=== PATIENT | male | born 1955 | race Caucasian/White ===

== ENCOUNTER 2022-02-27 21:04 | Inpatient (IN) | payer MEDICARE, MEDICAID ==
[~2022-02-27] VITALS: Ht 188 cm; Wt 116.7 kg
[2022-02-27 23:08] LABS: Basophils # (auto) 0.1 10 ^3/uL (0-0.2); Basophils % (auto) 0.5 % (0.0-2.0); Eosinophils # (auto) 0 10 ^3/uL (0-0.8); Eosinophils % (auto) 0.2 % (0.0-7.0); Hematocrit 50.5 % (41.0-53.0); Hemoglobin 16.1 g/dL (13.5-17.5); Lymphocytes # (auto) 1.1 10 ^3/uL (0.4-5.4); Lymphocytes % (auto) 8.9 % (10.0-50.0); Mean Corpuscular Hemoglobin 30.5 pg (28.0-32.0); Mean Corpuscular Hgb Conc. 31.9 g/dL (32.0-36.0); Mean Corpuscular Volume 95.8 fL (80.0-100.0); Monocytes # (auto) 0.8 10 ^3/uL (0-1.3); Monocytes % (auto) 6.9 % (0.0-12.0); Neutrophils # (auto) 10.2 10 ^3/uL (1.6-8.6); Neutrophils % (auto) 83.5 % (37.0-80.0); Red Blood Cells 5.28 10^6/uL (4.5-5.90); Red Cell Distribution Width 14.8 % (11.8-14.3); White Blood Cell 12.2 10^3/uL (4.4-10.8)
[2022-02-27 23:49] LABS: Alanine Aminotransferase 21 U/L (16-61); Alkaline Phosphatase 114 U/L (45-117); Anion Gap 10 (5-15); Aspartate Aminotransferase 29 U/L (15-37); BUN/Creatinine Ratio 7.9; Blood Urea Nitrogen 19 mg/dL (7-18); Carbon Dioxide 21 mmol/L (21-32); Chloride 108 mmol/L (98-107); GFR African American 35 mL/min; GFR Non-African American 29 mL/min; Glucose 131 mg/dL (74-106); Potassium 3.1 mmol/L (3.5-5.1); Sodium 139 mmol/L (136-145)
[2022-02-27 23:50] LABS: Albumin 3.1 g/dL (3.4-5.0); Bilirubin, Total 0.7 mg/dL (0.2-1.0); Blood Alcohol < 3.0 mg/dL (0-5); Calcium 9.1 mg/dL (8.5-10.1); Lipase 128 U/L (73-393); Total Protein 6.7 g/dL (6.4-8.2)
[2022-02-28] MEDS ORDERED: cefTRIAXone SOD 1,000 MG VL IV ONE (00:30)
[2022-02-28] MEDS ORDERED: ACETAMINOPHEN 325 MG TAB PO PRN (00:45)
[2022-02-28] MEDS ORDERED: DEXTROSE (50%) 50ML SYRG IV PRN (00:45)
[2022-02-28] MEDS ORDERED: ONDANSETRON HCL 4 MG/2 ML VIAL IV PRN (00:45)
[2022-02-28] MEDS ORDERED: DOCUSATE SOD 100 MG CAP PO PRN (00:45)
[2022-02-28] MEDS ORDERED: NITROGLYCERIN 0.4 MG SL TAB SL PRN (01:15)
[2022-02-28] MEDS ORDERED: MORPHINE SULFATE INJ 2 MG/ml SYRG IV PRN (01:15)
[2022-02-28 05:35] LABS: Amphetamine Screen, Urine NEGATIVE (NEGATIVE); Barbiturate Scree,Urine NEGATIVE (NEGATIVE); Benzodiazephine Screen, Urine NEGATIVE (NEGATIVE); Cannabinoid Screen, Urine NEGATIVE (NEGATIVE); Cocaine Screen, Urine NEGATIVE (NEGATIVE); Opiate Scree,Urine NEGATIVE (NEGATIVE); Phencyclidine Screen, Urine NEGATIVE (NEGATIVE)
[2022-02-28] MEDS: POTASSIUM CHL 20MEQ/100ML 100 ML IV SCH ×2 (05:58→09:49)
[2022-02-28] MEDS: HYDROcodone-ACET 5/325MG TAB PO PRN ×3 (06:29→22:58)
[2022-02-28 06:44] LABS: Basophils # (auto) 0 10 ^3/uL (0-0.2); Basophils % (auto) 0.5 % (0.0-2.0); Eosinophils # (auto) 0.1 10 ^3/uL (0-0.8); Eosinophils % (auto) 0.8 % (0.0-7.0); Hematocrit 49.6 % (41.0-53.0); Hemoglobin 16.4 g/dL (13.5-17.5); Lymphocytes # (auto) 1.6 10 ^3/uL (0.4-5.4); Mean Corpuscular Hemoglobin 31.4 pg (28.0-32.0); Mean Corpuscular Volume 94.9 fL (80.0-100.0); Monocytes # (auto) 0.7 10 ^3/uL (0-1.3); Monocytes % (auto) 8.3 % (0.0-12.0); Neutrophils # (auto) 6.5 10 ^3/uL (1.6-8.6); Neutrophils % (auto) 72.4 % (37.0-80.0); Nucleated Red Blood Cells % 0.1 %; Red Blood Cells 5.22 10^6/uL (4.5-5.90); Red Cell Distribution Width 14.5 % (11.8-14.3)
[2022-02-28 06:45] LABS: INR 1.02 (0.9-1.15)
[2022-02-28 06:49] LABS: Albumin 3.1 g/dL (3.4-5.0); Calcium 9.3 mg/dL (8.5-10.1); Potassium 3.8 mmol/L (3.5-5.1)
[2022-02-28 06:52] LABS: Urine Bacteria FEW /hpf (None Seen); Urine Blood 3+ /uL (Negative); Urine Hyaline Cast FEW /lpf (0 - 2); Urine Mucus FEW (None Seen); Urine Specific Gravity 1.023 (1.001-1.035); Urine WBC 33 /hpf (0 - 3)
[2022-02-28 06:55] LABS: BUN/Creatinine Ratio 8.4; Total Protein 6.7 g/dL (6.4-8.2)
[2022-02-28] MEDS: InsuLIN REG 1unit/0.01ml Soln (100units/ml) SC SCH ×4 (07:00→22:00)
[2022-02-28] MEDS: ACCU-CHEK COMFORT CURVE STRIP VI SCH ×4 (07:00→22:00)
[2022-02-28] MEDS: SODIUM CHLOR 0.9% PF (SALINE LOCK) 10ML VIAL/SYR IV SCH ×3 (09:48→22:00)
[2022-02-28] MEDS: cefTRIAXone 1GM/50ML D5W 50 ML IV SCH (09:49)
[2022-02-28] MEDS: FAMOTIDINE (10MG/ML) 2ML VL IV SCH (09:49)
[2022-02-28] MEDS: HEPARIN SODIUM (PORCINE) 5000 UNITS/ML 1ML VIAL SC SCH ×2 (09:50→22:58)
[2022-02-28] MEDS ORDERED: METOPROLOL TARTRATE 50 MG TAB PO ONE (16:45)
[2022-02-28] MEDS: hydrALAZINE HCL 20 MG/ML VL IV PRN (16:57)
[2022-02-28 19:50] VITALS: BP 149/111
[2022-02-28 20:00] VITALS: BP 157/93
[2022-02-28 20:16] VITALS: BP 149/111
[2022-02-28] MEDS ORDERED: POTA-167 (20:24)
[2022-02-28] MEDS ORDERED: SIMV-8 PO (20:24)
[2022-02-28] MEDS ORDERED: BUPR150T18 PO (20:24)
[2022-02-28] MEDS ORDERED: METO1TAB9 PO (20:24)
[2022-02-28] MEDS ORDERED: QUET300T24 PO (20:24)
[2022-02-28] MEDS ORDERED: FURO40TA4 PO (20:24)
[2022-02-28] MEDS ORDERED: OMEP-445 (20:24)
[2022-02-28] MEDS ORDERED: CLON0.3T PO (20:24)
[2022-02-28] MEDS ORDERED: ISOS1TAB28 PO (20:24)
[2022-02-28 22:00] VITALS: BP 156/99
[2022-02-28] MEDS: METOPROLOL TARTRATE 50 MG TAB PO SCH (22:58)
[2022-03-01] VITALS (9 sets, daily range): BP systolic 130–174; BP diastolic 50–101
[2022-03-01] MEDS: SODIUM CHLOR 0.9% PF (SALINE LOCK) 10ML VIAL/SYR IV SCH ×3 (04:06→21:52)
[2022-03-01] MEDS: HYDROcodone-ACET 5/325MG TAB PO PRN ×2 (04:06→21:46)
[2022-03-01 05:25] LABS: Albumin 2.8 g/dL (3.4-5.0); BUN/Creatinine Ratio 12.2; Calcium 9.3 mg/dL (8.5-10.1); Potassium 3.3 mmol/L (3.5-5.1)
[2022-03-01 05:27] LABS: Bilirubin, Total 0.6 mg/dL (0.2-1.0)
[2022-03-01] MEDS: hydrALAZINE HCL 20 MG/ML VL IV PRN ×2 (05:55→21:46)
[2022-03-01] MEDS: InsuLIN REG 1unit/0.01ml Soln (100units/ml) SC SCH ×4 (06:51→22:00)
[2022-03-01] MEDS: ACCU-CHEK COMFORT CURVE STRIP VI SCH ×4 (06:52→22:00)
[2022-03-01 08:39] LABS: Basophils # (auto) 0.1 10 ^3/uL (0-0.2); Basophils % (auto) 0.8 % (0.0-2.0); Eosinophils # (auto) 0.1 10 ^3/uL (0-0.8); Eosinophils % (auto) 1.9 % (0.0-7.0); Hematocrit 48.9 % (41.0-53.0); Hemoglobin 15.8 g/dL (13.5-17.5); Lymphocytes # (auto) 1.6 10 ^3/uL (0.4-5.4); Lymphocytes % (auto) 22.5 % (10.0-50.0); Mean Corpuscular Hgb Conc. 32.4 g/dL (32.0-36.0); Mean Corpuscular Volume 95.6 fL (80.0-100.0); Monocytes # (auto) 0.8 10 ^3/uL (0-1.3); Monocytes % (auto) 11.3 % (0.0-12.0); Neutrophils # (auto) 4.6 10 ^3/uL (1.6-8.6); Neutrophils % (auto) 63.5 % (37.0-80.0); Nucleated Red Blood Cells % 0.3 %; Red Blood Cells 5.11 10^6/uL (4.5-5.90); Red Cell Distribution Width 14.5 % (11.8-14.3); White Blood Cell 7.3 10^3/uL (4.4-10.8)
[2022-03-01] MEDS: cefTRIAXone 1GM/50ML D5W 50 ML IV SCH (11:17)
[2022-03-01] MEDS: FAMOTIDINE (10MG/ML) 2ML VL IV SCH (11:18)
[2022-03-01] MEDS: METOPROLOL TARTRATE 50 MG TAB PO SCH ×2 (11:18→21:46)
[2022-03-01] MEDS: HEPARIN SODIUM (PORCINE) 5000 UNITS/ML 1ML VIAL SC SCH ×2 (11:19→23:07)
[2022-03-01] MEDS ORDERED: NIFE1TAB31 PO (13:00)
[2022-03-01] MEDS ORDERED: MIDAZOLAM HCL 2MG/2ML 2ml VIAL (1mg/ml) IV ONE (20:45)
[2022-03-01] MEDS ORDERED: MIDAZOLAM HCL 2MG/2ML 2ml VIAL (1mg/ml) IV PRN (21:00)
[2022-03-01] MEDS ORDERED: HALOPERIDOL LACTATE 5 MG/ML INJ VIAL IM PRN (21:00)
[2022-03-02] VITALS (7 sets, daily range): BP systolic 109–184; BP diastolic 61–112
[2022-03-02] MEDS: hydrALAZINE HCL 20 MG/ML VL IV PRN (05:29)
[2022-03-02] MEDS: SODIUM CHLOR 0.9% PF (SALINE LOCK) 10ML VIAL/SYR IV SCH ×3 (05:29→21:11)
[2022-03-02] MEDS ORDERED: hydrALAZINE HCL 25 MG TAB PO SCH (06:00)
[2022-03-02] MEDS: InsuLIN REG 1unit/0.01ml Soln (100units/ml) SC SCH ×4 (06:01→22:00)
[2022-03-02] MEDS: ACCU-CHEK COMFORT CURVE STRIP VI SCH ×4 (06:02→22:00)
[2022-03-02] MEDS: HYDROcodone-ACET 5/325MG TAB PO PRN ×2 (07:51→17:18)
[2022-03-02] MEDS: cefTRIAXone 1GM/50ML D5W 50 ML IV SCH (10:37)
[2022-03-02] MEDS: FAMOTIDINE (10MG/ML) 2ML VL IV SCH (10:37)
[2022-03-02] MEDS: HEPARIN SODIUM (PORCINE) 5000 UNITS/ML 1ML VIAL SC SCH (10:38)
[2022-03-02] MEDS: METOPROLOL TARTRATE 50 MG TAB PO SCH ×2 (10:38→21:11)
[2022-03-02] MEDS ORDERED: NIFEdipine ER 30 MG TAB PO ONE (11:30)
[2022-03-02] MEDS ORDERED: ISOSORBIDE MONONITRATE ER 60 MG TAB PO ONE (11:30)
[2022-03-02] MEDS ORDERED: NICOTINE 21MG/24 HR TOPICAL PATCH TD ONE (11:30)
[2022-03-02] MEDS ORDERED: cloNIDine HCL 0.1 MG TAB PO ONE (11:30)
[2022-03-02] MEDS: buPROPion HCL 75 MG TAB PO SCH (19:08)
[2022-03-02] MEDS: cloNIDine HCL 0.1 MG TAB PO SCH (21:11)
[2022-03-02] MEDS: ATORVASTATIN 20 MG TAB PO SCH (22:00)
[2022-03-02] MEDS: QUEtiapine FUMARATE 100 MG TAB PO SCH (22:00)
[2022-03-03 05:00] VITALS: BP 144/77
[2022-03-03] MEDS: SODIUM CHLOR 0.9% PF (SALINE LOCK) 10ML VIAL/SYR IV SCH ×3 (05:49→22:00)
[2022-03-03 06:27] LABS: Calcium 8.8 mg/dL (8.5-10.1)
[2022-03-03] MEDS: ACCU-CHEK COMFORT CURVE STRIP VI SCH ×4 (06:51→22:00)
[2022-03-03] MEDS: InsuLIN REG 1unit/0.01ml Soln (100units/ml) SC SCH ×4 (06:51→22:00)
[2022-03-03] MEDS: buPROPion HCL 75 MG TAB PO SCH ×2 (06:51→19:00)
[2022-03-03 09:00] VITALS: BP 120/68
[2022-03-03] MEDS: cloNIDine HCL 0.1 MG TAB PO SCH ×2 (10:00→22:00)
[2022-03-03] MEDS: ISOSORBIDE MONONITRATE ER 60 MG TAB PO SCH (10:00)
[2022-03-03] MEDS: cefTRIAXone 1GM/50ML D5W 50 ML IV SCH (10:24)
[2022-03-03] MEDS: QUEtiapine FUMARATE 100 MG TAB PO SCH ×2 (10:25→22:33)
[2022-03-03] MEDS: NICOTINE 21MG/24 HR TOPICAL PATCH TD SCH (10:25)
[2022-03-03] MEDS: METOPROLOL TARTRATE 50 MG TAB PO SCH ×2 (10:27→22:33)
[2022-03-03] MEDS: NIFEdipine ER 30 MG TAB PO SCH (10:43)
[2022-03-03] MEDS ORDERED: POTASSIUM CHL 20 Meq TABLET PO ONE (11:15)
[2022-03-03 13:00] VITALS: BP 127/83
[2022-03-03 16:52] VITALS: BP 143/90
[2022-03-03] MEDS: ATORVASTATIN 20 MG TAB PO SCH (22:33)
[2022-03-04 05:00] VITALS: BP 139/75
[2022-03-04] MEDS: InsuLIN REG 1unit/0.01ml Soln (100units/ml) SC SCH ×3 (05:58→17:00)
[2022-03-04] MEDS: buPROPion HCL 75 MG TAB PO SCH ×2 (05:58→18:02)
[2022-03-04] MEDS: SODIUM CHLOR 0.9% PF (SALINE LOCK) 10ML VIAL/SYR IV SCH ×2 (05:59→14:00)
[2022-03-04] MEDS: ACCU-CHEK COMFORT CURVE STRIP VI SCH ×3 (05:59→17:13)
[2022-03-04 07:34] LABS: Potassium 3.5 mmol/L (3.5-5.1)
[2022-03-04 07:45] LABS: BUN/Creatinine Ratio 14.3; Calcium 9.5 mg/dL (8.5-10.1)
[2022-03-04] MEDS: cefTRIAXone 1GM/50ML D5W 50 ML IV SCH (09:58)
[2022-03-04] MEDS: cloNIDine HCL 0.1 MG TAB PO SCH ×3 (10:00→15:53)
[2022-03-04] MEDS: QUEtiapine FUMARATE 100 MG TAB PO SCH (10:00)
[2022-03-04] MEDS: NICOTINE 21MG/24 HR TOPICAL PATCH TD SCH (10:01)
[2022-03-04 10:03] VITALS: BP 129/72
[2022-03-04] MEDS ORDERED: LEVO500T31 PO (10:59)
[2022-03-04] MEDS ORDERED: MET50T PO (11:02)
[2022-03-04] MEDS: METOPROLOL TARTRATE 50 MG TAB PO SCH (11:05)
[2022-03-04] MEDS: NIFEdipine ER 30 MG TAB PO SCH ×2 (11:05→18:03)
[2022-03-04] MEDS: ISOSORBIDE MONONITRATE ER 60 MG TAB PO SCH (11:05)
[2022-03-04 13:00] VITALS: BP 160/90
[2022-03-04 17:00] VITALS: BP_SYST 141; BP_SYST 152; BP_DIAS 79; BP_DIAS 91
[2022-03-04 18:05] VITALS: BP 145/91
[2022-03-04 19:00] VITALS: BP 141/93
== END 2022-03-04 19:05 | disposition home or self-care (01) | DRG 52 ==
LOC: EDBD 21:04 → ER 21:15 → TELE 02-28 01:07 → TELE-EAST 02-28 19:07 → EAST 03-04 03:27
PROVIDERS: ADMIT Nurse Practitioner Family; ATTEND Internal Medicine
DX: G92.8 Other toxic encephalopathy (principal); N17.0 Acute kidney failure with tubular necrosis; S09.90XA Unspecified injury of head, initial encounter; E88.09 Other disorders of plasma-protein metabolism, not elsewhere classified; E11.22 Type 2 diabetes mellitus with diabetic chronic kidney disease; D72.829 Elevated white blood cell count, unspecified; E11.65 Type 2 diabetes mellitus with hyperglycemia; N39.0 Urinary tract infection, site not specified; Z20.822 Contact with and (suspected) exposure to COVID-19; E66.9 Obesity, unspecified; E87.6 Hypokalemia; F17.200 Nicotine dependence, unspecified, uncomplicated; I12.9 Hypertensive chronic kidney disease with stage 1 through stage 4 chronic kidney disease, or unspecified chronic kidney disease; N18.30 Chronic kidney disease, stage 3 unspecified; G93.89 Other specified disorders of brain; E78.5 Hyperlipidemia, unspecified; I16.0 Hypertensive urgency; W18.39XA Other fall on same level, initial encounter; Y93.89 Activity, other specified; Y92.098 Other place in other non-institutional residence as the place of occurrence of the external cause; Z87.828 Personal history of other (healed) physical injury and trauma; Y99.8 Other external cause status; Z85.07 Personal history of malignant neoplasm of pancreas; Z68.32 Body mass index [BMI] 32.0-32.9, adult
CPT/HCPCS: 36415; 70450; 70551; 71045; 80048; 80053; 80307; 80320; 81001; 82140; 82607; 82962; 83036; 83605; 83690; 83880; 84443; 84484; 85025; 85610; 87086; 96361; 96365; 97110; 97116; 97163; 97530; G0378; J0696; J1815; J3480; J3490